=== PATIENT | male | born 1955 | race African-American/Black ===

== ENCOUNTER 2017-10-08 09:15 | Inpatient (IN) ==
[2017-10-08] MEDS ORDERED: DEXTROSE 50% 25 GM/50 ML VIAL IV PRN (15:00)
[2017-10-08] MEDS ORDERED: GLUCAGON 1 MG VIAL IM PRN (15:00)
[2017-10-08] MEDS ORDERED: MORPHINE 4 MG/1 ML VIAL IV PRN (15:00)
[2017-10-08] MEDS ORDERED: ONDANSETRON 4 MG/2 ML VIAL IV PRN (15:00)
[2017-10-08] MEDS ORDERED: ACETAMINOPHEN 325 MG TABLET PO PRN (15:00)
[2017-10-08 16:05] LABS: Basophils % 0.3 % (0.0-0.8); Eosinophils # 0.2 10*3/uL (0.0-0.87); Eosinophils % 1.3 % (0.00-10.9); Hematocrit 27.8 VOL% (42.0-52.0); Hemoglobin 9.6 GM/DL (14.0-18.0); Immature Granulocytes % 2.3 %; Immature Granulocytes Absolute 0.29 #; Lymphocytes # 1.9 10*3/uL (1.4-4.0); Lymphocytes % 15.3 % (21.2-54.2); Mean Corpuscular HGB Conc 34.5 GM/DL (32-36); Mean Corpuscular Hemoglobin 30 PG (27-34); Mean Corpuscular Volume 85.5 FL (87-102); Mean Platelet Volume 9.2 FL (9.6-12.0); Monocytes # 1.1 10*3/uL (0.11-0.8); Monocytes % 8.9 % (1.7-12.7); NRBC # 0.02 10*3/uL; Neutrophils # 9.1 10*3/uL (1.4-7.4); Neutrophils % 71.9 % (38.7-73.9); Platelet Count 604 T/CUMM (130-400); Red Blood Count 3.25 MC/CUMM (3.8-5.5); Red Cell Distribution Width 14.2 % (9.3-17.3); White Blood Count 12.7 T/CUMM (4-12)
[2017-10-08 16:27] LABS: Albumin 1.6 G/DL (3.4-5.0); Bilirubin,Total 0.6 MG/DL (0.2-1.0); Calcium 8.4 MG/DL (8.5-10.1); Osmolality,Calculated 267.1 MOS/KG (273-304); Total Protein 6.3 G/DL (6.4-8.3)
[2017-10-08 17:26] LABS: Sedimentation Rate-Westergren 113 MM/HR (0-20)
[2017-10-08] MEDS: VANCOMYCIN INJ 1,000 MG in SODIUM CHLORIDE 0.9% 250 ML IV SCH (17:51)
[2017-10-08] MEDS ORDERED: NALOXONE 0.4 MG/ML VIAL IV PRN (18:22)
[2017-10-08] MEDS ORDERED: MORPHINE PCA 30 MG/30 ML SYRINGE IV SCH (18:30)
[2017-10-08] MEDS: LEVALBUTEROL 0.63 MG/3 ML NEB RESP TX SCH (19:51)
[2017-10-08] MEDS: GABAPENTIN 300 MG CAPSULE PO SCH (21:40)
[2017-10-09] MEDS: LEVALBUTEROL 0.63 MG/3 ML NEB RESP TX SCH ×5 (00:53→13:49)
[2017-10-09 01:49] LABS: Lactic Acid 1.4 MMOL/L (0.4-2.0)
[2017-10-09 04:56] LABS: Basophils % 0.2 % (0.0-0.8); Eosinophils # 0.1 10*3/uL (0.0-0.87); Eosinophils % 1.2 % (0.00-10.9); Hematocrit 25.9 VOL% (42.0-52.0); Hemoglobin 8.8 GM/DL (14.0-18.0); Immature Granulocytes % 1.7 %; Immature Granulocytes Absolute 0.18 #; Lymphocytes # 1.6 10*3/uL (1.4-4.0); Lymphocytes % 15.6 % (21.2-54.2); Mean Corpuscular Hemoglobin 29 PG (27-34); Mean Platelet Volume 9.2 FL (9.6-12.0); Monocytes # 1.1 10*3/uL (0.11-0.8); Monocytes % 10.3 % (1.7-12.7); Neutrophils # 7.4 10*3/uL (1.4-7.4); Platelet Count 624 T/CUMM (130-400); Red Blood Count 3.01 MC/CUMM (3.8-5.5); Red Cell Distribution Width 14.4 % (9.3-17.3); White Blood Count 10.3 T/CUMM (4-12)
[2017-10-09 05:24] LABS: Calcium 8.3 MG/DL (8.5-10.1); Osmolality,Calculated 265.2 MOS/KG (273-304); Potassium 3.8 MMOL/L (3.5-5.1)
[2017-10-09] MEDS: VANCOMYCIN INJ 1,000 MG in SODIUM CHLORIDE 0.9% 250 ML IV SCH ×2 (05:45→18:34)
[2017-10-09] MEDS ORDERED: CLOPIDOGREL 75 MG TABLET PO SCH (09:00)
[2017-10-09] MEDS ORDERED: DILTIAZEM CD 240 MG CAPSULE PO SCH (09:00)
[2017-10-09] MEDS ORDERED: LEVOFLOXACIN INJ 750 MG in PREMIX 1 EACH IV SCH (09:00)
[2017-10-09] MEDS ORDERED: PANTOPRAZOLE 40 MG TABLET PO SCH (09:00)
[2017-10-09] MEDS ORDERED: ASPIRIN EC 81 MG TABLET PO SCH (09:00)
[2017-10-09] MEDS ORDERED: BUPIVACAINE MPF 0.25% /EPI 30 ML VIAL ONE (09:04)
[2017-10-09] MEDS ORDERED: LIDOCAINE 1%/EPI INJ 20 ML VIAL ONE (09:04)
[2017-10-09] MEDS: GABAPENTIN 300 MG CAPSULE PO SCH (10:46)
[2017-10-09] MEDS ORDERED: PROPOFOL 200 MG/20 ML VIAL IV ONE (12:54)
[2017-10-09] MEDS ORDERED: SEVOFLURANE 1 UNIT/15 MINUTE INH ONE (12:54)
[2017-10-09] MEDS ORDERED: fentaNYL 100 MCG/2 ML VIAL ONE (12:55)
[2017-10-09] MEDS ORDERED: KETAMINE 500 MG/10 ML VIAL ONE (12:56)
[2017-10-09] MEDS ORDERED: MIDAZOLAM 2 MG/2 ML VIAL ONE (12:56)
[2017-10-09] MEDS ORDERED: ONDANSETRON 4 MG/2 ML VIAL ONE (13:02)
[2017-10-09] MEDS ORDERED: MEPERIDINE 25 MG/1 ML VIAL ONE ×2 (13:02→13:36)
[2017-10-09] MEDS: MEPERIDINE 25 MG/1 ML VIAL IV PRN ×2 (13:05→13:40)
[2017-10-09] MEDS ORDERED: ONDANSETRON 4 MG/2 ML VIAL IV PRN (13:14)
[2017-10-09] MEDS ORDERED: MORPHINE 10 MG/1 ML VIAL IV PRN (13:14)
[2017-10-09] MEDS ORDERED: PROMETHAZINE INJ 25 MG in SODIUM CHLORIDE 0.9% 50 ML IV PRN (13:14)
[2017-10-09] MEDS ORDERED: diphenhydrAMINE 50 MG/1 ML VIAL IV PRN (13:14)
[2017-10-09] MEDS ORDERED: METOPROLOL TARTRATE 5 MG/5 ML VIAL IV ONE ×2 (13:21→13:33)
[2017-10-09 13:24] LABS: Apearance,Urine CLEAR (Clear); Bilirubin,Urine Negative (Negative); Blood, Urine Negative (Negative); Glucose,Urine (UA) Negative (Negative); Ketones,Urine Negative (Negative); Nitrite,Urine Negative (Negative); Protein,Urine Negative; Squamous Epithelial Cell,Urine Occasional /HPF (0-10); Urine Color Yellow (Yellow); Urine Specific Gravity 1.009 (1.001-1.035); WBC,Urine 1 /HPF (0-6)
[2017-10-09] MEDS: METOPROLOL TARTRATE 5 MG/5 ML VIAL IV SCH ×2 (13:25→14:01)
[2017-10-09] MEDS ORDERED: hydrALAZINE 20 MG/1 ML VIAL IV PRN (13:33)
[2017-10-09] MEDS ORDERED: SODIUM CHLORIDE 0.9% 1,000 ML IV SCH (14:00)
[2017-10-09] MEDS ORDERED: ENOXAPARIN 60 MG/0.6 ML SYRINGE SUBCUT SCH (15:00)
[2017-10-09 18:21] VITALS: BP 137/78
[2017-10-10] MEDS: LEVALBUTEROL 0.63 MG/3 ML NEB RESP TX SCH ×2 (01:05→01:06)
== END 2017-10-09 19:44 | disposition hospice, home (50) | DRG 206 ==
LOC: N.2E 13:17 → N.ICU 10-09 13:18
PROVIDERS: ADMIT Surgery; ATTEND Surgery